=== PATIENT | male | born 1975 | race African-American/Black ===

== ENCOUNTER 2018-11-21 16:52 | Inpatient (IN) ==
[2018-11-21 18:10] LABS: BASO# 0.02 X1000 (0.0-0.2); BASO% 0.2 % (0.0-0.8); EOS# 0.13 X1000 (0.0-0.7); EOS% 1.4 % (0.0-10.0); HEMATOCRIT 34.6 % (42.0-52.0); HEMOGLOBIN 11.9 g/dL (14.0-18.0); IMM GRAN# 0.02 X1000 (0.0-0.04); IMM GRAN% 0.2 % (0.0-0.5); LYMPH# 1.65 X1000 (1.2-3.4); LYMPH% 17.3 % (20.5-51.1); MCH 34.8 PG (27-31); MCHC 34.4 g/dL (33-37); MCV 101.2 FL (81-99); MONO# 0.45 X1000 (0.11-0.59); MONO% 4.7 % (1.7-9.3); MPV 11.3 FL (7.4-10.4); NEUT# 7.29 X1000 (1.4-6.5); NEUT% 76.2 % (42.2-75.2); PLT 123 X1000 (130-400); RBC 3.42 XMIL (4.7-6.1); RDW 10.8 % (11.5-14.5); WBC 9.56 X1000 (4.8-10.8)
--- NOTE | 2018-11-21 18:15 | Diag Imaging Result Doc PS360 ---
EXAM: CHEST-PORTABLE 11/21/2018 HISTORY: seizure TECHNIQUE: AP portable at 1807 COMMENT: There is no evidence of acute cardiac or pulmonary disease. Compared to 04/08/2012 considering differences in technique there has been no significant change. IMPRESSION: No evidence of acute disease. Electronically signed by Biju Cardona 11/21/2018 6:13 PM
[2018-11-21 18:19] LABS: INR 0.99; PROTIME 13.9 Seconds (11.0-16.0)
[2018-11-21 18:21] LABS: PTT 29.3 Seconds (22.3-41.8)
[2018-11-21 18:33] LABS: AGAP 16; ALB/GLOB RATIO 1.5; ALBUMIN 4.1 g/dL (3.5-5.0); ALKALINE PHOSPHATASE 155 U/L (32-122); BUN 7 mg/dL (8-22); CALCIUM 8.5 mg/dL (8.8-10.2); CHLORIDE 94 mmol/L (98-107); COSMO 267; CREATININE 0.7 mg/dL (0.7-1.2); ESTIMATED GFR > 60; GLUCOSE 107 mg/dL (70-104); GOT 76 U/L (10-34); GPT 46 U/L (10-44); SODIUM 134 mmol/L (136-145); TCO2 24 mmol/L (25-35); TOTAL BILIRUBIN 1.17 mg/dL (0.20-1.00); TOTAL PROTEIN 6.9 g/dL (6.3-8.3)
[2018-11-21 18:45] LABS: CK PROFILE 348 U/L (24-204)
[2018-11-21] MEDS ORDERED: M.V.I.-12 10 ML, FOLIC ACID 1 MG, MAGNESIUM SULFATE 1 GM, THIAMINE 100 MG in NS 1,000 ML IV ONE (18:48)
[2018-11-21] MEDS ORDERED: ATIVAN IV ONE ×2 (18:53→20:26)
[2018-11-21] MEDS ORDERED: POTASSIUM CHLORIDE 60 MEQ in NS 500 ML IV SCH (19:00)
--- NOTE | 2018-11-21 19:13 | Diag Imaging Result Doc PS360 ---
EXAM: CT HEAD W/O CONTRAST 11/21/2018 HISTORY: Head injury TECHNIQUE: This exam was performed using automated exposure control, adjustment of mA or kV according to patient size, and/or use of iterative reconstruction technique. COMMENT: There is no evidence of mass effect, bleed, or abnormal extra-axial fluid collection. 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 The calvarium is intact. IMPRESSION: No evidence of acute intracranial disease. Electronically signed by Biju Cardona 11/21/2018 7:11 PM
[2018-11-21 19:20] LABS: CK INDEX 1.4 (0.0-2.5); CK-MB 5.01 ng/mL (0.0-5.0)
[2018-11-21] MEDS ORDERED: ZOFRAN IV PRN ×2 (20:26→23:12)
[2018-11-21] MEDS ORDERED: ATIVAN IV PRN ×2 (20:26→23:08)
[2018-11-21] MEDS ORDERED: LIBRIUM PO ONE (20:26)
[2018-11-21] MEDS ORDERED: TYLENOL PO PRN (20:26)
[2018-11-21] MEDS ORDERED: POTASSIUM CHLORIDE 20% LIQUID PO ONE ×2 (20:27→23:07)
[2018-11-21] MEDS ORDERED: LIBRIUM PO SCH (20:30)
[2018-11-21] MEDS ORDERED: NS + KCL 20 MEQ 1,000 ML IV SCH (20:30)
[2018-11-21] MEDS ORDERED: LOVENOX SUBQ SCH (20:30)
[2018-11-21 20:31] LABS: MAGNESIUM 1.5 mg/dL (1.5-2.7); PHOSPHORUS 2.1 mg/dL (2.7-4.5)
[2018-11-21] MEDS ORDERED: POTASSIUM CHLORIDE 10 MEQ/SWI 10 MEQ/100 ML IVPB IV ONE ×2 (20:31→23:02)
[2018-11-21 20:33] LABS: URINE SOURCE CLEAN CATCH
[2018-11-21 20:37] LABS: BILIRUBIN URINE SMALL (NEGATIVE); BLOOD URINE NEGATIVE (NEGATIVE); COLOR ORANGE; GLUCOSE URINE NEGATIVE (NEGATIVE); KETONE URINE TRACE mg/dL (NEGATIVE); LEUKOCYTES URINE NEGATIVE (NEGATIVE); NITRITE URINE NEGATIVE (NEGATIVE); PROTEIN URINE 50 mg/dL (NEGATIVE); SP GRAVITY URINE 1.025; TURBIDITY URINE CLEAR (CLEAR); UROBILINOGEN URINE 12 mg/dL (NORMAL)
[2018-11-21 20:39] LABS: UR EPITHELIAL CELLS <10 /HPF (<10); URINE BACTERIA NEGATIVE /HPF; URINE RBC <10 /HPF (<10); URINE WBC <10 /HPF (<10)
--- NOTE | 2018-11-21 21:10 | HISTORY AND PHYSICAL ---
PRIMARY CARE PHYSICIAN: No primary care physician. REASON FOR ADMISSION: Recurrent seizure episodes today. HISTORY OF PRESENT ILLNESS: Mr. Blake Pierre is a 43-year-old, man with no significant past medical history other than extensive alcohol abuse. He reports that while at work he blacked out and when he came to, was told he had a tonic clonic seizure. He said he felt better after the episode and then had another one after he stood up. He says he has been trying to quit drinking alcohol and his last drink was 4 days ago. Drinks about 12 tall boys a day and takes half of it before he goes to work and half when he comes back. He says if he does not drink alcohol before gross to work his hands shake a lot. Did not have a lot of tremors leading up to today. He has not been sleeping very well. He denies any cardiorespiratory complaints. No GI complaints. He has never had any prior episodes of seizures in the past. No genitourinary complaints. No arthralgias or rash. No ataxia. No focal neurological complaints. REVIEW OF SYSTEMS: Twelve system review was limited due to the fact the patient was very drowsy from the effects of Ativan given 10 minutes ago. Patient did mention to me for the last couple of days he has been having intermittent cramping in his arms and legs which has prevented him from sleeping. ALLERGIES: No allergies. HOME MEDICATIONS: None. PAST SURGICAL HISTORY: He has only had a cholecystectomy. FAMILY HISTORY: He denies any heart disease, diabetes, or cancer in first-degree relatives. SOCIAL HISTORY: Smokes half a pack a day. Lives with his mother. No illicit drug use. Drinks about 12 tall boys a day. LABORATORY STUDIES: Lab work notable for the following findings. White count 9000, hemoglobin and hematocrit of 11 and 34, MCV is 101, platelet count 123,000, 76% neutrophils. Sodium 134, potassium 3.0, anion gap 16, BUN 7, creatinine 0.7, glucose 107, calcium 8.5, total bilirubin is 1.1, AST 76, ALT 46, alkaline phosphatase 455. Troponins negative. Phosphorus and magnesium pending. PTT is normal. IMAGING STUDIES: Head CT: No evidence of any intracranial process. Chest film: No evidence of acute disease. PHYSICAL EXAMINATION: VITAL SIGNS: Blood pressure 112/60, heart rate 94, respirations 22, temperature 98.1. GENERAL: He is a middle-aged man, who is somewhat a little drowsy but easy to arouse. He is oriented to person, place, and time. HEAD: The patient has 3 x 4 cm right occipital parietal hematoma. Mildly tender. EYES: Pupils are equal, reactive to light. He has nystagmus in the horizontal plane when he looks to the right. Otherwise, no vertical nystagmus. Anicteric, not pale. EARS, NOSE, AND THROAT: Exam is grossly normal. NECK: Supple. No JVD or carotid bruit. No thyromegaly. CHEST: Clear with good air entry both lung gonzalez. CARDIOVASCULAR: First and second sounds heard. No gallops, rubs. Rhythm is regular. ABDOMEN: Full, soft, nontender. No mass, megaly, bowel sounds normal. RECTAL: Deferred at this time. EXTREMITIES: The patient has mild tremor. He has good distal pulse. Volume is regular, symmetrical. No edema, clubbing, or cyanosis. NEUROLOGICAL: No gross focal deficits appreciated. SKIN: Intact. No breakdown, lesion, erythema. MUSCULOSKELETAL: Exam is grossly normal. ASSESSMENT: 1. Alcohol withdrawal seizure. 2. Mild alcohol withdrawal. 3. Alcoholic hepatitis. 4. Microcytic anemia, probably secondary to alcoholic liver disease. 5. Hypokalemia, probably secondary to hyperadrenergic state. PLAN: We will replete electrolytes with fluids. Start patient on low-dose scheduled Librium to head off any further seizures or withdrawal symptoms. If patient becomes profoundly agitated, will give p.r.n. intravenous Ativan. Thiamine will be started to prevent early onset Wernicke's encephalopathy. The patient has no evidence of ophthalmoplegia although he has nystagmus. The patient tells me he definitely wants to quit drinking and when he is detoxed, maybe he can be referred to outpatient Alcoholic Anonymous or similar group. The patient may also be transferred to [facility] to undergo further detoxification. cc: Lisseth Tesfaye MD
[2018-11-21] MEDS: LIBRIUM PO SCH (23:49)
--- NOTE | 2018-11-22 01:16 | PROVIDER DOCUMENTATION ---
This chart was entered by Suzan Sahu Scribe, acting as scribe for Sheila Berry MD. 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 he became dizzy, having double vision and loc. pt hit back of head on floor and has rle pain but no other injuries. pt is 5 days sober from alcohol, wanted to quit cold turkey due to cramps. pt was drinking 12 beer/day. pt has no hx seizures in past. pt denies nvd. Onset/Duration: reports: just prior to arrival - Seizure First time to have a seizure?: Yes Witnessed seizure?: Yes (friend) How many seizure episodes?: 2 Episode details: reports: unknown duration Episode Frequency: no prior episodes Preceding symptoms/context:: recent alcohol or drug use (detoxing from alcohol x 5days) Post-ictal Symptoms: reports: other (rt occipital knot and rle pain) Seizure related injury: lower extremity Review of Systems - Adult - REVIEW OF SYSTEMS - ADULT Constitutional: reports: no symptoms reported. denies: chills, fever Eyes: reports: no symptoms reported Ears, Nose, Mouth & Throat: reports: no symptoms reported Cardiovascular: reports: no symptoms reported Respiratory: reports: no symptoms reported Gastrointestinal: reports: no symptoms reported Genitourinary: reports: no symptoms reported Musculoskeletal: reports: no symptoms reported Integumentary: reports: no symptoms reported Neurological: reports: see HPI, dizziness/vertigo, seizure, syncope. denies: numbness, paresthesia Psychiatric: reports: see HPI, alcohol/drug dependence (detox from alc 5 days). denies: insomnia, panic attacks, suicidal thoughts Endocrine: reports: no symptoms reported Hematologic/Lymphatic: reports: no symptoms reported Allergic/Immunologic: reports: no symptoms reported All Other Systems: Reviewed and Negative Past History - Adult - PAST MEDICAL HISTORY-ADULT Review of Records: reports: Old Records Reviewed, Nursing Assessment Review, Medications Reviewed, Social history reviewed & non-contributory. Major Childhood Illnesses: reports: denies history Cardiovascular: reports: denies history Respiratory: reports: denies history Gastrointestinal: reports: pancreatitis Obstetrical/Gynecological: reports: denies history Genitourinary: reports: denies history Musculoskeletal: reports: denies history Neurological: reports: denies history Psychiatric: reports: denies history Endocrine/Immune: reports: denies history Other Conditions: reports: denies history - PRIOR SURGERIES/PROCEDURES Surgical/Procedure History: reports: cholecystectomy - IMMUNIZATION STATUS Childhood Immunizations: See Nurse Assessment Flu Vaccine: See Nurse Assessment - FAMILY HISTORY Family History: reviewed, not pertinent - SOCIAL HISTORY Smoking: cigarettes, less than 1 pack/day Provider spent 3-5 mins advising pt. on dangers of tobacco.: Discussed manners to quit use, and f/u contacts for add'l counseling. Substance Use: alcohol Alcohol Use Frequency: every day Number of drinks per typical drinking period:: 11-15 drinks Physical Exam- Neurological - Physical Exam-Neuro Initial Vital Signs Reviewed: Yes General Appearance: alert, anxious. negative: cachetic, obtunded, combative Eye Exam: bilateral eye: normal inspection, PERRL, EOMI HENMT: normocephalic/atraumatic, moist mucous membranes, normal ENT inspection Head Injury: swelling, tenderness (rt occipital to palp.). negative: active bleeding, Paulino's Sign, ecchymosis Neck: non-tender, full range of motion, supple, normal inspection Respiratory: chest non-tender, lungs clear, normal breath sounds Cardiovascular: normal peripheral pulses, no edema, no gallop, no JVD, no murmur , tachycardia. negative: regular rate, rhythm, JVD, bradycardia Abdominal Exam: normal bowel sounds, non tender, soft Peripheral Pulses: radial (R): 2+, radial (L): 2+ Extremity: normal range of motion, normal inspection, tenderness (rt hip laterally). negative: non-tender leasing sales consultant Exam: normal hearing, normal speech, PERRL. negative: abnormal speech, facial asymmetry, facial droop, facial paresthesias Coordination/Gait: normal finger to nose Motor/Sensory: no motor deficit, no sensory deficit, no pronator drift. negative: pronator drift (R), pronator drift (L), sensory deficit, weak motor strength RLE, weak motor strength LLE Neurologic: leasing sales consultant II-XII nml as tested, grossly normal, no motor/sensory deficits. negative: aphasia, EOM palsy, facial droop Integumentary: normal color, normal turgor, warm/dry Psych/Mental Status: normal thought content, normal thought process, oriented x 3 - Glascow Coma Scale Best Eye Response: (4) open spontaneously Best Verbal Response: (5) oriented Best Motor Response: (6) obeys commands Total Glascow Score: 15 Progress - PLAN OF CARE/RESULTS Progress/Plan/Lab Results: Vital Signs - 8 hr 11/21/18 17:49 11/21/18 17:50 11/21/18 17:51 Temperature Pulse Rate 95 H 86 105 H Respiratory Rate 18 18 22 Blood Pressure 111/62 O2 Sat by Pulse Oximetry 99 100 100 11/21/18 17:57 11/21/18 18:00 11/21/18 18:01 Temperature 98.2 F Pulse Rate 90 105 H Respiratory Rate 24 15 29 H Blood Pressure 111/62 122/82 O2 Sat by Pulse Oximetry 100 100 100 11/21/18 18:10 11/21/18 18:20 11/21/18 18:30 Temperature Pulse Rate 93 H 102 H 91 H Respiratory Rate 18 19 20 Blood Pressure 122/82 O2 Sat by Pulse Oximetry 100 100 100 11/21/18 18:31 11/21/18 18:58 11/21/18 19:31 Temperature 98.1 F Pulse Rate 96 H 94 H 90 Respiratory Rate 22 22 21 Blood Pressure 112/68 112/68 109/66 O2 Sat by Pulse Oximetry 100 100 11/21/18 20:01 11/21/18 21:20 Temperature Pulse Rate 93 H 89 Respiratory Rate 19 18 Blood Pressure 119/72 O2 Sat by Pulse Oximetry 100 100 Laboratory Results - last 24 hr 11/21/18 11/21/18 11/21/18 17:55 17:55 17:55 WBC 9.56 RBC 3.42 L Hgb 11.9 L Hct 34.6 L MCV 101.2 H MCH 34.8 H MCHC 34.4 RDW Std Deviation 10.8 L Plt Count 123 L MPV 11.3 H Immature Gran % (Auto) 0.2 Neut % (Auto) 76.2 H Lymph % (Auto) 17.3 L Scott % (Auto) 4.7 Eos % (Auto) 1.4 Baso % (Auto) 0.2 Immature Gran # (Auto) 0.02 Neut # (Auto) 7.29 H Lymph # (Auto) 1.65 Scott # (Auto) 0.45 Eos # (Auto) 0.13 Baso # (Auto) 0.02 PT 13.9 INR 0.99 PTT (Actin FS) 29.3 Sodium 134 L Potassium 3.0 L Chloride 94 L Carbon Dioxide 24 L Anion Gap 16 BUN 7 L Creatinine 0.7 Estimated GFR/1.73 m2 > 60 BUN/Creatinine Ratio 10 Glucose 107 H POC Glucose Calculated Osmolality 267 Calcium 8.5 L Phosphorus Magnesium Total Bilirubin 1.17 H AST 76 H ALT 46 H Alkaline Phosphatase 155 H Creatine Kinase 348 H Creatine Kinase Index 1.4 CK-MB (CK-2) 5.01 H Troponin T Total Protein 6.9 Albumin 4.1 Globulin 2.8 Albumin/Globulin Ratio 1.5 Urine Source Urine Color Urine Turbidity Urine pH Ur Specific Lewis Urine Protein Ur Glucose (Stick) Ur Ketones (Stick) Urine Blood Urine Nitrite Urine Bilirubin Urobilinogen Dipstick Urine Leukocytes Urine WBC (Auto) Urine RBC (Auto) U Epithel Cells (Auto) Urine Bacteria (Auto) 11/21/18 11/21/18 11/21/18 17:55 17:55 17:58 WBC RBC Hgb Hct MCV MCH MCHC RDW Std Deviation Plt Count MPV Immature Gran % (Auto) Neut % (Auto) Lymph % (Auto) Scott % (Auto) Eos % (Auto) Baso % (Auto) Immature Gran # (Auto) Neut # (Auto) Lymph # (Auto) Scott # (Auto) Eos # (Auto) Baso # (Auto) PT INR PTT (Actin FS) Sodium Potassium Chloride Carbon Dioxide Anion Gap BUN Creatinine Estimated GFR/1.73 m2 BUN/Creatinine Ratio Glucose POC Glucose 134 H Calculated Osmolality Calcium Phosphorus 2.1 L Magnesium 1.5 Total Bilirubin AST ALT Alkaline Phosphatase Creatine Kinase Creatine Kinase Index CK-MB (CK-2) Troponin T < 0.010 Total Protein Albumin Globulin Albumin/Globulin Ratio Urine Source Urine Color Urine Turbidity Urine pH Ur Specific Lewis Urine Protein Ur Glucose (Stick) Ur Ketones (Stick) Urine Blood Urine Nitrite Urine Bilirubin Urobilinogen Dipstick Urine Leukocytes Urine WBC (Auto) Urine RBC (Auto) U Epithel Cells (Auto) Urine Bacteria (Auto) 11/21/18 18:58 WBC RBC Hgb Hct MCV MCH MCHC RDW Std Deviation Plt Count MPV Immature Gran % (Auto) Neut % (Auto) Lymph % (Auto) Scott % (Auto) Eos % (Auto) Baso % (Auto) Immature Gran # (Auto) Neut # (Auto) Lymph # (Auto) Scott # (Auto) Eos # (Auto) Baso # (Auto) PT INR PTT (Actin FS) Sodium Potassium Chloride Carbon Dioxide Anion Gap BUN Creatinine Estimated GFR/1.73 m2 BUN/Creatinine Ratio Glucose POC Glucose Calculated Osmolality Calcium Phosphorus Magnesium Total Bilirubin AST ALT Alkaline Phosphatase Creatine Kinase Creatine Kinase Index CK-MB (CK-2) Troponin T Total Protein Albumin Globulin Albumin/Globulin Ratio Urine Source CLEAN CATCH Urine Color ORANGE Urine Turbidity CLEAR Urine pH 6.0 Ur Specific Lewis 1.025 Urine Protein 50 A Ur Glucose (Stick) NEGATIVE Ur Ketones (Stick) TRACE A Urine Blood NEGATIVE Urine Nitrite NEGATIVE Urine Bilirubin SMALL A Urobilinogen Dipstick 12 A Urine Leukocytes NEGATIVE Urine WBC (Auto) <10 Urine RBC (Auto) <10 U Epithel Cells (Auto) <10 Urine Bacteria (Auto) NEGATIVE Orders Category Date Time Status Admit - [facility] Routine AdmDCTranf 11/21/18 20:26 Active Cardiac Monitoring DIRECTED Care 11/21/18 18:01 Completed Finger Stick Blood Sugar (ED) DIRECTED Care 11/21/18 18:01 Completed Oxygen Therapy- ED Nursing DIRECTED Care 11/21/18 18:01 Completed Saline Loc NOW Care 11/21/18 18:01 Completed Clear Liquid Diet Diet 11/21/18 20:27 Active CHEST-PORTABLE [RAD] Stat Exams 11/21/18 18:[address] HEAD W/O CONTRAST [CT] Stat Exams 11/21/18 18:02 Completed CBC WITH DIFF [HEME] Routine Lab 11/22/18 06:00 Ordered CBC WITH ELECTRONIC DIFF [HEME] Stat Lab 11/21/18 17:55 Completed CK PROFILE [SP CHEM] Stat Lab 11/21/18 17:55 Completed COMPREHENSIVE METABOLIC PANEL [CHEM] Routine Lab 11/22/18 06:00 Ordered COMPREHENSIVE METABOLIC PANEL [CHEM] Stat Lab 11/21/18 17:55 Completed MAGNESIUM [CHEM] Routine Lab 11/22/18 06:00 Ordered MAGNESIUM [CHEM] Stat Lab 11/21/18 17:55 Completed PHOSPHORUS [CHEM] Stat Lab 11/21/18 17:55 Completed PROTIME WITH INR [COAG] Stat Lab 11/21/18 17:55 Completed PTT [COAG] Stat Lab 11/21/18 17:55 Completed TROPONIN T Stat Lab 11/21/18 17:55 Completed URINALYSIS [URINALYSIS] Stat Lab 11/21/18 18:58 Completed Acetaminophen [Tylenol] Med 11/21/18 20:26 Discontinued 650 mg PO Q6H PRN PRN Chlordiazepoxide [Librium] Med 11/21/18 20:26 Discontinued 25 mg PO NOW ONE Chlordiazepoxide [Librium] Med 11/21/18 20:30 Discontinued 25 mg PO Q6H Enoxaparin [Lovenox] Med 11/21/18 20:30 Discontinued 40 mg SUBQ Q24H Lorazepam [Ativan] Med 11/21/18 20:26 Discontinued 1 mg IV NOW ONE Lorazepam [Ativan] Med 11/21/18 18:53 Discontinued 2 mg IV NOW ONE Lorazepam [Ativan] Med 11/21/18 20:26 Discontinued 2 mg IV Q2H PRN PRN Mvi [M.v.i.-12] 10 ml Med 11/21/18 18:48 Discontinued Folic Acid 1 mg Magnesium Sulfate 1 gm Thiamine 100 mg 0.9% Sodium Chloride Inj [Ns] 1,000 ml IV NOW Ns + KCl 20 Meq 1,000 ml Med 11/21/18 20:30 Discontinued IV 150 mls/hr Ondansetron [Zofran] Med 11/21/18 20:26 Discontinued 4 mg IV Q4H PRN PRN Potassium Chloride 10 Meq/Swi Med 11/21/18 20:31 Discontinued 10 meq in 100 ml IV ONCE Potassium Chloride 20% Liquid Med 11/21/18 20:27 Discontinued 40 meq PO NOW ONE Potassium Chloride 60 meq Med 11/21/18 19:00 Discontinued 0.9% Sodium Chloride Inj [Ns] 500 ml IV Q8H Thiamine Med 11/22/18 09:00 Discontinued 100 mg IM DAILY Telemetry [OM.EQ] Routine Oth 11/21/18 20:26 Active EKG [EKG] Stat Ther 11/21/18 18:01 Ordered Transfer/Admit Order [TRANSFER] Routine Transfer 11/21/18 20:20 Completed Transfer/Admit Order [TRANSFER] Routine Transfer 11/21/18 20:27 Completed Alcohol withdrawl causing seizure, ativan given, will admit. Result Diagrams: 11/21/18 17:55 11/21/18 17:55 - EKG 1 Time of EKG reading by physician:: 17:52 EKG Read and Signed by:: Aidan Gomez EKG Interpretation (*Must complete 3 of following elements*): Normal Rate: 86 Rhythm: NSR [place]: normal QRS: normal [place] Interval: normal ST Wave: normal - XRAY 1 XRAY: Bilateral XRAY Study: Chest ( Signed EXAM: CHEST-PORTABLE 11/21/2018 HISTORY: seizure TECHNIQUE: AP portable at 1807 COMMENT: There is no evidence of acute cardiac or pulmonary disease. Compared to 04/08/2012 considering differences in technique there has been no significant change. IMPRESSION: No evidence of acute disease. Electronically signed by Biju Cardona 11/21/2018 6:13 PM) Impression: Normal - CT/MRI 1 CT Study: Head (Signed EXAM: CT HEAD W/O CONTRAST 11/21/2018 HISTORY: Head injury TECHNIQUE: This exam was performed using automated exposure control, adjustment of mA or kV according to patient size, and/or use of iterative reconstruction technique. COMMENT: There is no evidence of mass effect, bleed, or abnormal extra-axial fluid collection. 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 The calvarium is intact. IMPRESSION: No evidence of acute intracranial disease. Electronically signed by Biju Cardona 11/21/2018 7:11 PM) Impression: Normal - CONSULTS/PCP/HOSPITALIST Notification #1 *Consult/PCP/Hospitalist*: Dr. Tesfaye Time Discussed: 19:55 Consult Disposition: Admit (Hx, PE and pt care discussed, accepted.) Departure - Departure Date of Disposition Decision: 11/21/18 Time of Disposition Decision: 19:54 DIAGNOSIS: Alcohol withdrawal Qualifiers: Complication of substance-induced condition: with unspecified complication Qualified Code(s): F10.239 - Alcohol dependence with withdrawal, unspecified Seizure due to alcohol withdrawal Qualifiers: Complication of substance-induced condition: uncomplicated Qualified Code(s): F10.230 - Alcohol dependence with withdrawal, uncomplicated Disposition: ADMITTED INPATIENT 09 Certified Medical Emergency: Emergent Condition: Stable - Critical Care Note This patient required my direct & personal management of CC.: No Attestation - Physician/ MINI Attestation Patient care was provided by Advanced Practice Provider:: No The physician spent face to face time with patient:: Yes Advanced Practice Provider documentation review:: Supervising physician onsite and consulted in the evaluation and care of this patient. The physician did have a face to face encounter with the patient. This chart was documented by the indicated scribe, (Suzan Sahu Scribe) and accurately reflects the services I performed and decisions made by me, Sheila Ozuna MD, as attested by the provider's signature.
[2018-11-22] MEDS ORDERED: NICODERM PATCH TD ONE (01:53)
[2018-11-22 05:18] LABS: BASO# 0.03 X1000 (0.0-0.2); BASO% 0.3 % (0.0-0.8); EOS# 0.22 X1000 (0.0-0.7); EOS% 2.5 % (0.0-10.0); HEMATOCRIT 31.5 % (42.0-52.0); HEMOGLOBIN 10.6 g/dL (14.0-18.0); LYMPH# 2.23 X1000 (1.2-3.4); LYMPH% 25.1 % (20.5-51.1); MCH 34.4 PG (27-31); MCHC 33.7 g/dL (33-37); MCV 102.3 FL (81-99); MONO# 0.61 X1000 (0.11-0.59); MONO% 6.9 % (1.7-9.3); MPV 11.2 FL (7.4-10.4); NEUT# 5.78 X1000 (1.4-6.5); NEUT% 65.2 % (42.2-75.2); PLT 112 X1000 (130-400); RBC 3.08 XMIL (4.7-6.1); WBC 8.87 X1000 (4.8-10.8)
[2018-11-22] MEDS ORDERED: LOVENOX SUBQ SCH (06:00)
[2018-11-22 06:13] LABS: AGAP 12; ALB/GLOB RATIO 1.1; ALBUMIN 3.2 g/dL (3.5-5.0); ALKALINE PHOSPHATASE 171 U/L (32-122); BUN 4 mg/dL (8-22); CALCIUM 8.5 mg/dL (8.8-10.2); CHLORIDE 102 mmol/L (98-107); COSMO 271; CREATININE 0.6 mg/dL (0.7-1.2); ESTIMATED GFR > 60; GLUCOSE 109 mg/dL (70-104); GOT 72 U/L (10-34); GPT 37 U/L (10-44); MAGNESIUM 1.9 mg/dL (1.5-2.7); POTASSIUM 3.3 mmol/L (3.5-5.1); SODIUM 137 mmol/L (136-145); TCO2 23 mmol/L (25-35); TOTAL BILIRUBIN 0.91 mg/dL (0.20-1.00); TOTAL PROTEIN 6.2 g/dL (6.3-8.3)
[2018-11-22] MEDS: LIBRIUM PO SCH ×2 (06:35→11:28)
--- NOTE | 2018-11-22 08:55 | EKG Report ---
Test Performed on : 11/21/2018 5:52:57 PM Test Reason : seizure Blood Pressure : / mmHG Vent. Rate : 086 BPM Atrial Rate : 086 BPM P-R Int : 152 ms QRS Dur : 094 ms QT Int : 362 ms P-R-T Axes : 034 -16 051 degrees QTc Int : 433 ms Normal sinus rhythm. Normal ECG No previous ECGs available Unconfirmed Result
[2018-11-22] MEDS ORDERED: THIAMINE IM SCH (09:00)
[2018-11-22 13:49] VITALS: BP 110/68
--- NOTE | 2018-11-23 03:38 | DISCHARGE SUMMARY ---
ADMISSION DATE: 11/21/2018 DISCHARGE DATE: 11/22/2018 DISPOSITION: Home. FOLLOW-UP: Will be with [facility] in [place]. ADMISSION DIAGNOSES: 1. Alcohol withdrawal seizures. 2. Mild alcohol withdrawal. 3. Alcoholic hepatitis. 4. Hypokalemia. DIAGNOSIS AT TIME OF DISCHARGE: 1. Alcohol withdrawal seizures. 2. Mild alcoholic hepatitis with discriminant function for estimating disease, disease severity was 10. The patient did not need any steroids. 3. Severe alcohol abuse. 4. Electrolyte abnormalities associated with chronic alcohol abuse (hypokalemia, hypophosphatemia, hypomagnesemia were all replaced). 5. Macrocytic anemia secondary to alcohol abuse. DISCHARGE MEDICATIONS: 1. Gabapentin 100 mg b.i.d. 2. Omeprazole 40 mg daily. 3. Thiamine 100 mg p.o. daily. 4. Librium 25 mg p.o. q.8 hours. PRESENTING COMPLAINT: Seizures. HISTORY OF PRESENTING COMPLAINT: Mr. Pierre is a 43-year-old gentleman who has a history of extensive alcohol abuse, has been in the hospital multiple times in the past. The patient is said to drink about 12 tall boys per day. He just decided to stop drinking cold turkey 5 days ago, and yesterday he was found to have 2 [id number] seizures. He was brought into the emergency department. He was given Ativan and observed overnight. HOSPITAL COURSE: During the hospital course, he did not have any more seizures. He did not show any more signs of severe alcohol withdrawal. He said he wanted to be discharged and that he would continue to avoid and abstain from alcohol use. He has been given a prescription, including gabapentin, Librium to help with alcohol withdrawal. He has been advised to follow up with [facility] in [place], and all the discharge instructions have been discussed with him and he voiced understanding. At the time of the discharge, his blood pressure was 110/68, pulse of 82, respiration 18, temperature was 98 degrees. Patient was saturating 99%. He is clinically stable. Still has some mild residual tremors, but for most part he is eating well and we think he is fairly stable for discharge. TIME SPENT: For discharge is 35 minutes. cc: Philip Robert MD
== END 2018-11-22 13:47 | disposition home or self-care (01) | DRG 101 ==
LOC: SUPCPDRO → ED 16:52 → EDIPHOLD 21:23 → SUATTDRO 21:23 → EDIPHOLD 11-22 13:45
PROVIDERS: ATTEND Internal Medicine
CPT/HCPCS: 70450; 71010; 71045; 80053; 81001; 82550; 82553; 82948; 83735; 84100; 84484; 85025; 85610; 85730; 93005; A9270; J1650; J2060; J3411; J3475; J3480; J7030; J7040; XXXXX